=== PATIENT | male | born 1980 | race Caucasian/White ===

== ENCOUNTER 2019-01-07 11:52 | Emergency (ER) | payer MEDICAID ==
[~2019-01-07] VITALS: Ht 172.7 cm; Wt 68.2 kg
[2019-01-07 14:14] LABS: BASOPHILS % (AUTO) 0.3 % (0-1); EOSINOPHILS % (AUTO) 0 % (0-6); HEMATOCRIT 45.1 % (42.0-52.0); HEMOGLOBIN 14.9 g/dl (14.0-17.9); LYMPHOCYTES # (AUTO) 1.4 X10'3 (1.1-4.8); LYMPHOCYTES % (AUTO) 14.1 % (21-51); MEAN CORPUSCULAR HEMOGLOBIN 33.5 PG (27.0-31.0); MEAN CORPUSCULAR HGB CONC 33.1 g/dL (33.0-36.5); MONOCYTES # (AUTO) 0.4 X10'3 (0-0.9); MONOCYTES % (AUTO) 4.3 % (2-12); NEUTROPHILS # (AUTO) 7.9 X10'3 (1.8-7.7); NEUTROPHILS % (AUTO) 81.3 % (42-75); PLATELET COUNT 255 X10'3 (140-440); RED BLOOD COUNT 4.46 X10'6 (4.70-6.10); RED CELL DISTRIBUTION WIDTH 13.3 % (11.5-14.5); WHITE BLOOD COUNT 9.7 X10'3 (4.5-11.0)
[2019-01-07 14:23] LABS: ALANINE AMINOTRANSFERASE 16 U/L (12-78); ALBUMIN 4.7 G/DL (3.4-5.0); ALBUMIN/GLOBULIN RATIO 1.3 (1.1-1.5); ALKALINE PHOSPHATASE 100 IU/L (46-116); ANION GAP 8 (8-16); ASPARTATE AMINO TRANSFERASE 14 U/L (10-37); BILIRUBIN,TOTAL 0.6 MG/DL (0.1-1.0); BLOOD UREA NITROGEN 12 MG/DL (7-18); BUN/CREATININE RATIO 16.7 (5.4-32.0); CALCIUM 9.8 MG/DL (8.5-10.1); CHLORIDE 103 MMOL/L (99-107); CREATININE 0.72 MG/DL (0.60-1.10); GLUCOSE 103 MG/DL (70-104); POTASSIUM 4.2 MMOL/L (3.5-5.1); SODIUM 141 MMOL/L (135-145); TOTAL CARBON DIOXIDE 29.9 MMOL/L (24-32); TOTAL PROTEIN 8.2 G/DL (6.4-8.2); eGFR > 90 ML/MIN
[2019-01-07 14:25] LABS: CLARITY,URINE CLEAR (Clear); COLOR,URINE YELLOW (Yellow); GLUCOSE, URINE NEGATIVE (Neg); KETONES,URINE 40 mg/dl (Neg); LEUKOCYTE ESTERASE ,URINE NEGATIVE (Neg); NITRITES, URINE NEGATIVE (Neg); OCCULT BLOOD,URINE NEGATIVE (Neg); PROTEIN,URINE TRACE mg/dl (Neg)
[2019-01-07 14:29] LABS: UA COLLECTION TYPE VOIDED; URINE AMPHETAMINE SCREEN NEGATIVE (Neg); URINE BARBITUATE SCREEN NEGATIVE (Neg); URINE BENZODIAZEPINES SCREEN POSITIVE (Neg); URINE CANNABINOID SCREEN POSITIVE (Neg); URINE COCAINE SCREEN NEGATIVE (Neg); URINE METHADONE SCREEN NEGATIVE (Neg); URINE OPIATE SCREEN NEGATIVE (Neg); URINE PHENCYCLIDINE SCREEN NEGATIVE (Neg)
[2019-01-07 14:32] LABS: ETHANOL < 0.010 GM/DL (0.0-0.010)
[2019-01-07 14:38] LABS: BACTERIA,URINE NONE SEEN /HPF (Neg); CAL OXALATE CRYSTALS 3+ /HPF (NEGATIVE); MUCUS STRANDS MANY /LPF (Neg); RBC,URINE NONE SEEN /HPF (0-2); SQUAMOUS EPITHELIAL CELL,UR NONE SEEN /LPF (FEW); TRANSITIONAL EPI CELLS,URINE FEW /HPF; WBC,URINE 0-4 /HPF (0-4)
[2019-01-07] MEDS ORDERED: BUPR1FIL17 SL ×2 (15:33→15:50)
[2019-01-07] MEDS ORDERED: ALPR1TAB2 PO (15:33)
[2019-01-07] MEDS ORDERED: ALPRAZolam 0.5mg tablet PO PRN (15:50)
--- NOTE | 2019-01-07 17:24 | NUR ---
recieved call from sol davies, he was given history and situatuation, he will visit the pt and call back when he has made his determination
--- NOTE | 2019-01-07 19:44 | NUR ---
[place] (ex-) [phone] Leticia (Mother) [phone] Both parties including the patient have requested that they are updated to any major changes in his care. They would also like to give a report to the [facility] worker on what has been going on with him prior to admission. They are both concerned that he will not give and accurate report of his symptoms.
--- NOTE | 2019-01-07 20:50 | NUR ---
Spoke W/ Dr Philip to clarify order R/T to telepsych recomendation. New order D/C xanax, start 50mg seroquel HS and PRN 25mg Hydroxyzine TID PRN anxiety.
[2019-01-07] MEDS ORDERED: hydrOXYzine 25 MG tablet PO PRN (20:55)
[2019-01-07] MEDS ORDERED: quetiapine 100mg tablet PO SCH (21:00)
[2019-01-07] MEDS: QUEtiapine 25mg tablet PO SCH (21:29)
--- NOTE | 2019-01-08 00:45 | NUR ---
pt resting comfortably on his back. no signs of distress noted. will continue to monitor.
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
[2019-01-08] MEDS: buprenorphine/naloxone 2-0.5mg sublingual tablet SL SCH (08:57)
[2019-01-08] MEDS: nicotine 21mg patch - 24 hr TD SCH (11:08)
--- NOTE | 2019-01-08 19:34 | NUR ---
pt is sitting and chatting with friend. pt requested that other patients not wander to his side, as it makes him paranoid.
[2019-01-08] MEDS: QUEtiapine 25mg tablet PO SCH (20:19)
--- NOTE | 2019-01-08 20:22 | NUR ---
pt asked to keep his neighbor from bothering him. pt is sitting quietly with friend, very pleasant and cooperative.
--- NOTE | 2019-01-08 21:09 | NUR ---
pt is resting quietly.
--- NOTE | 2019-01-08 22:55 | NUR ---
pt's mother called to check on pt. pt is resting in bed quietly.
--- NOTE | 2019-01-09 06:49 | NUR ---
introduced self to patient, pt awake sitting up in bed, no signs of distress, pleasant and calm affect, will continue to monitor.
--- NOTE | 2019-01-09 07:49 | NUR ---
Patient awake, calm, no signs of distress.
[2019-01-09] MEDS: nicotine 21mg patch - 24 hr TD SCH (08:00)
--- NOTE | 2019-01-09 08:44 | NUR ---
patient awake, asked for phone to speak to mother, speaking with mother now, pt calm and no signs of distress.
[2019-01-09] MEDS: buprenorphine/naloxone 2-0.5mg sublingual tablet SL SCH (09:01)
--- NOTE | 2019-01-09 09:09 | NUR ---
patient's friend "Sergio" in to visit with patient, patient calm, no distress. will continue to monitor.
--- NOTE | 2019-01-09 10:25 | NUR ---
patient speaking with his friend cleve at bedside, no signs of distress. pt appears calm and pleasant. will continue to monitor.
--- NOTE | 2019-01-09 12:00 | NUR ---
patient calm, speaking with mother at bedside, no signs of distress, will continue to monitor.
--- NOTE | 2019-01-09 13:11 | NUR ---
Patient sitting up in chair with blanket, visitors at bedside. will continue to monitor.
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
--- NOTE | 2019-01-09 15:15 | NUR ---
Spoke to [facility] regarding this patient. Patient to be discharged today and transported to [facility] today. communicated this to patient.
[2019-01-09 16:16] VITALS: BP 117/79
== END 2019-01-09 16:30 ==
LOC: ER 11:55
DX: R45.851 Suicidal ideations (principal); F41.9 Anxiety disorder, unspecified; F32.9 Major depressive disorder, single episode, unspecified; F11.90 Opioid use, unspecified, uncomplicated; Z79.899 Other long term (current) drug therapy
CPT/HCPCS: 36415; 80053; 80305; 80320; 81001; 84443; 85025; 99285